=== PATIENT | male | born 1995 | race Caucasian/White ===

== ENCOUNTER 2016-08-03 23:39 | Emergency (ER) | payer OTHER | END 2016-08-04 01:15 | disposition home or self-care (01) | LOC: ER 23:39 | DX: S82.254A Nondisplaced comminuted fracture of shaft of right tibia, initial encounter for closed fracture (principal); Z88.1 Allergy status to other antibiotic agents; Z88.5 Allergy status to narcotic agent; W20.8XXA Other cause of strike by thrown, projected or falling object, initial encounter | CPT/HCPCS: 96372; J2550 ==